=== PATIENT | female | born 1970 | race African-American/Black ===

== ENCOUNTER 2016-05-13 12:18 | Emergency (ER) | payer SELFPAY ==
[2016-05-13] MEDS ORDERED: traMADol HCl 50 MG TAB ONE (13:01)
[2016-05-13] MEDS ORDERED: Naproxen 500 MG TAB ONE (13:02)
[2016-05-13] MEDS ORDERED: Amoxicillin/Potassium Clav 500 MG TAB ONE (13:02)
== END 2016-05-13 13:14 | disposition home or self-care (01) ==
LOC: MADERS 12:18
DX: J02.9 Acute pharyngitis, unspecified (principal); I25.10 Atherosclerotic heart disease of native coronary artery without angina pectoris; E78.5 Hyperlipidemia, unspecified; E11.9 Type 2 diabetes mellitus without complications; I11.0 Hypertensive heart disease with heart failure; I50.9 Heart failure, unspecified; E78.00 Pure hypercholesterolemia, unspecified; I42.9 Cardiomyopathy, unspecified; F32.9 Major depressive disorder, single episode, unspecified; F41.9 Anxiety disorder, unspecified; Z79.82 Long term (current) use of aspirin; Z79.4 Long term (current) use of insulin; Z79.899 Other long term (current) drug therapy
CPT/HCPCS: 99282

== ENCOUNTER 2016-10-08 19:02 | Emergency (ER) | payer SELFPAY ==
[~2016-10-08 19:02] MED LIST: Sodium Chloride 0.9% 1,000 ML BAG ONE; Sodium Chloride 0.9% 500 ML BAG ONE
[2016-10-08] MEDS ORDERED: Insulin Regular 300 UNITS/3 ML VIAL ONE (20:07)
[2016-10-08 20:08] LABS: INR-International Normal Ratio 0.9; PTT 29.4 SEC (22.9-36.1); Prothrombin Time 12.7 SEC (12.0-14.7)
[2016-10-08 20:20] LABS: Alkaline Phosphatase 96 U/L (40-150); BUN (Urea Nitrogen) 12 mg/dL (7.0-18.7); Bilirubin, Total Less than 0.3 mg/dL (0.2-1.2); CKMB 0.6 ng/mL (0-6.6); Calc. Creatinine Clearance 0 mL/min (70-130); Calcium 9.7 mg/dL (7.8-10.44); Carbon Dioxide 10 mmol/L (22-29); Chloride 90 mmol/L (98-107); Estimated GFR-MDRD 63; Sodium 127 mmol/L (136-145); Troponin I 0.021 ng/mL (< 0.028)
[2016-10-08 20:23] LABS: Potassium 4.5 mmol/L (3.5-5.1)
[2016-10-08 20:24] LABS: Globulin 6.3 g/dL (2.4-3.5); Glucose 571 mg/dL (70-105); Protein, Total 10.3 g/dL (6.0-8.3)
[2016-10-08 20:43] LABS: ALT (SGPT) 30 U/L (8-55); AST (SGOT) 30 U/L (5-34)
[2016-10-08 20:52] LABS: Clarity Clear (Clear)
[2016-10-08 20:53] LABS: Bilirubin Negative (Negative); Blood, Urine Negative (Negative); Glucose, Urine (Dipstick) >=1000 mg/dL (Negative); Leukocyte Negative (Negative); Nitrite Negative (Negative); Protein, Urine (Dipstick) Negative (Neg-Trace); Specific Gravity, Urine 1.028 (1.002-1.036); Urobilinogen 0.2 mg/dL (0.2-1.0)
[2016-10-08 20:59] LABS: Band 1 % (5-11); Hemoglobin 12.5 g/dL (12.0-16.0); Lymphocytes 45 % (21-51); MDiff Complete? YES; Mean Corpuscular HGB CONC 36.1 g/dL (32.0-36.0); Mean Corpuscular Hemoglobin 28.2 pg (27.0-31.0); Mean Corpuscular Volume 78.3 fl (81.0-99.0); Mean Platelet Volume 7.1 fL (7.4-10.4); Monocytes 2 % (0-10); Neutrophil 44 % (42-75); PLT Morphology Comment Appears Adequate; Platelet Count 256 thou/uL (130-400); RBC Distribution Width 12.8 % (11.5-14.5); RBC Morphology Normal; Reactive Lymphocytes 8 % (0-10); Red Blood Cell (RBC) Count 4.43 mill/uL (4.20-5.40); White Blood Cell (WBC) Count 6.5 thou/uL (4.8-10.8)
[2016-10-08 21:00] LABS: THC/Cannabinoid Screen Not Detected (NotDetected)
[2016-10-08 21:01] LABS: Amphetamine Not Detected (NotDetected); Barbiturates Screen Not Detected (NotDetected); Benzodiazepine Screen Not Detected (NotDetected); Cocaine Metabolite Screen Not Detected (NotDetected); Medtox Control Line Valid? VALID (VALID); Methadone Not Detected (NotDetected); Methamphetamine Not Detected (NotDetected); Opiate Screen Not Detected (NotDetected); Oxycodone Screen Not Detected (NotDetected); Phencyclidine (PCP) Not Detected (NotDetected); Tricyclic Screen Not Detected (NotDetected)
--- NOTE | 2016-10-08 21:12 | RAD ---
AP VIEW CHEST: 10/08/16 HISTORY: Syncope. AP view chest is obtained on 10/08/16. Comparison made to previous exam from 02/29/16. AP view chest demonstrates a dual lead intracardiac defibrillator. Mild cardiomegaly is seen. The khadar ngs are well aerated. No evidence of active intrathoracic disease seen. No evidence of effusions, pn eumonia or pneumothorax seen. IMPRESSION: Cardiomegaly. POS: [facility]
== END 2016-10-08 23:20 | disposition short-term general hospital (02) ==
LOC: MADERS 19:02
DX: E11.65 Type 2 diabetes mellitus with hyperglycemia (principal); E86.0 Dehydration; I25.10 Atherosclerotic heart disease of native coronary artery without angina pectoris; E78.5 Hyperlipidemia, unspecified; I11.0 Hypertensive heart disease with heart failure; I50.9 Heart failure, unspecified; I42.9 Cardiomyopathy, unspecified; F41.9 Anxiety disorder, unspecified; F32.9 Major depressive disorder, single episode, unspecified; Z95.0 Presence of cardiac pacemaker; Z79.4 Long term (current) use of insulin; Z79.82 Long term (current) use of aspirin; Z79.899 Other long term (current) drug therapy
CPT/HCPCS: 36416; 71010; 80053; 80306; 81003; 82553; 83605; 83880; 84443; 84484; 85025; 85610; 85730; 87040; 93005; 94760; 96361; 96374; 96376; J1815; J7050

== ENCOUNTER 2017-07-07 11:38 | Outpatient (CLI) | payer OTHER ==
[2017-07-07 12:20] LABS: Anion Gap 20 mmol/L (10-20); BUN (Urea Nitrogen) 26 mg/dL (7.0-18.7); Calc. Creatinine Clearance 0 mL/min (70-130); Calcium 10.5 mg/dL (7.8-10.44); Carbon Dioxide 26 mmol/L (22-29); Chloride 98 mmol/L (98-107); Estimated GFR-MDRD 57; Glucose 312 mg/dL (70-105); Potassium 4.7 mmol/L (3.5-5.1); Sodium 139 mmol/L (136-145)
== END 2017-07-07 11:39 | disposition home or self-care (01) ==
LOC: MADLABBHPM 11:38
PROVIDERS: ATTEND Internal Medicine Cardiovascular Disease
DX: I50.22 Chronic systolic (congestive) heart failure (principal)
CPT/HCPCS: 36415; 80048

== ENCOUNTER 2017-10-03 08:42 | Outpatient (CLI) | payer OTHER ==
[2017-10-03 09:23] LABS: ALT (SGPT) 22 U/L (8-55); AST (SGOT) 28 U/L (5-34); Albumin 4.4 g/dL (3.5-5.0); Alkaline Phosphatase 78 U/L (40-150); Anion Gap 21 mmol/L (10-20); BUN (Urea Nitrogen) 18 mg/dL (7.0-18.7); Bilirubin, Total 0.7 mg/dL (0.2-1.2); Calc. Creatinine Clearance 0 mL/min (70-130); Calcium 9.8 mg/dL (7.8-10.44); Carbon Dioxide 25 mmol/L (22-29); Chloride 98 mmol/L (98-107); Estimated GFR-MDRD 67; Globulin 3.9 g/dL (2.4-3.5); Glucose 288 mg/dL (70-105); Potassium 5.6 mmol/L (3.5-5.1); Protein, Total 8.3 g/dL (6.0-8.3); Sodium 138 mmol/L (136-145)
== END 2017-10-03 08:43 | disposition home or self-care (01) ==
LOC: MADLAB 08:42
PROVIDERS: ATTEND Internal Medicine Cardiovascular Disease
DX: I50.20 Unspecified systolic (congestive) heart failure (principal)
CPT/HCPCS: 36415; 80053

== ENCOUNTER 2017-10-06 10:53 | Outpatient (CLI) | payer OTHER ==
[2017-10-06 11:36] LABS: Anion Gap 20 mmol/L (10-20); BUN (Urea Nitrogen) 27 mg/dL (7.0-18.7); Calc. Creatinine Clearance 0 mL/min (70-130); Calcium 9.8 mg/dL (7.8-10.44); Carbon Dioxide 25 mmol/L (22-29); Chloride 98 mmol/L (98-107); Estimated GFR-MDRD 49; Glucose 257 mg/dL (70-105); Potassium 4.1 mmol/L (3.5-5.1); Sodium 139 mmol/L (136-145)
== END 2017-10-06 10:54 | disposition home or self-care (01) ==
LOC: MADLAB 10:53
PROVIDERS: ATTEND Internal Medicine Cardiovascular Disease
DX: E87.5 Hyperkalemia (principal)
CPT/HCPCS: 36415; 80048

== ENCOUNTER 2017-12-09 16:43 | Emergency (ER) | payer SELFPAY | END 2017-12-09 17:33 | disposition home or self-care (01) | LOC: MADERS 16:43 | DX: K04.7 Periapical abscess without sinus (principal); I11.0 Hypertensive heart disease with heart failure; I50.9 Heart failure, unspecified; E11.9 Type 2 diabetes mellitus without complications; E78.5 Hyperlipidemia, unspecified; F32.9 Major depressive disorder, single episode, unspecified; F41.9 Anxiety disorder, unspecified; I42.9 Cardiomyopathy, unspecified; I25.10 Atherosclerotic heart disease of native coronary artery without angina pectoris | CPT/HCPCS: 99282 ==

== ENCOUNTER 2018-05-11 11:54 | Outpatient (CLI) | payer MEDICARE ==
[2018-05-11 12:12] LABS: #Eosinphils 0.1 thou/uL (0.0-0.7); #Lymphocytes 1.8 thou/uL (1.20-3.40); #Monocytes 0.3 thou/uL (0.11-0.59); #Neutrophils 3.8 thou/uL (1.40-6.50); %Basophils 0.6 % (0.0-1.0); %Eosinophils 0.9 % (0.0-10.0); %Lymphocytes 30.4 % (21.0-51.0); %Monocytes 5.1 % (0.0-10.0); Mean Corpuscular HGB CONC 32.6 g/dL (32.0-36.0); Mean Corpuscular Hemoglobin 26.6 pg (27.0-31.0); Mean Corpuscular Volume 81.6 fL (78.0-98.0); Mean Platelet Volume 8.5 fL (7.4-10.4); Platelet Count 188 thou/uL (130-400); RBC Distribution Width 11.7 % (11.5-14.5); Red Blood Cell (RBC) Count 4.87 mill/uL (4.20-5.40)
[2018-05-11 12:19] LABS: PTT 27.5 SEC (22.9-36.1); Prothrombin Time 12.9 SEC (12.0-14.7)
[2018-05-11 12:30] LABS: ALT (SGPT) 20 U/L (8-55); AST (SGOT) 14 U/L (5-34); Albumin 4.7 g/dL (3.5-5.0); Alkaline Phosphatase 106 U/L (40-150); Anion Gap 19 mmol/L (10-20); BUN (Urea Nitrogen) 21 mg/dL (7.0-18.7); Bilirubin, Total 0.5 mg/dL (0.2-1.2); Calc. Creatinine Clearance 0 mL/min (70-130); Calcium 10.5 mg/dL (7.8-10.44); Carbon Dioxide 28 mmol/L (22-29); Chloride 97 mmol/L (98-107); Estimated GFR-MDRD 66; Globulin 3.8 g/dL (2.4-3.5); Glucose 282 mg/dL (70-105); Protein, Total 8.5 g/dL (6.0-8.3); Sodium 140 mmol/L (136-145)
--- NOTE | 2018-05-11 14:30 | RAD ---
PA AND LATERAL VIEWS CHEST: Date: 05/11/18 HISTORY: Preoperative evaluation. FINDINGS: Comparison made with exam of 06/06/17. The heart size is normal. There is a left-sided AICD. The lungs are expanded without focal areas of c onsolidation, pneumothoraces, zen[place] pulmonary edema, or pleural effusions. No acute osseous abnormali ties are seen. IMPRESSION: No radiographic evidence of acute cardiopulmonary process. POS: [facility]
== END 2018-05-11 11:55 | disposition home or self-care (01) ==
LOC: MADLABBHPM 11:54
PROVIDERS: ATTEND Family Medicine
DX: Z01.818 Encounter for other preprocedural examination (principal)
CPT/HCPCS: 36415; 71046; 80053; 85025; 85610; 85730

== ENCOUNTER 2018-10-06 03:43 | Emergency (ER) | payer MEDICARE ==
[2018-10-06 04:29] LABS: Bilirubin Negative (Negative); Blood, Urine Negative (Negative); Clarity Clear (Clear); Glucose, Urine (Dipstick) >=1000 mg/dL (Negative); Leukocyte Negative (Negative); Nitrite Negative (Negative); Protein, Urine (Dipstick) Negative (Neg-Trace); Urobilinogen 0.2 mg/dL (Less than 2)
--- NOTE | 2018-10-06 08:04 | CT ---
CT OF ABDOMEN AND PELVIS NONCONTRAST: IMPRESSION: 02/18/2016. CLINICAL HISTORY: Abdominal pain with dysuria, constipation. FINDINGS: There is no evidence of urolithiasis or hydroureteral nephrosis. There is prominent distention of th e urinary bladder. Moderate volume of retained fecal material is present throughout the colon. Prio r cholecystectomy noted. The solid abdominal organs are limited in evaluation without the presence o f IV contrast. Visualized lung bases reveal no evidence of consolidation. There is trace pleural fl uid bilaterally. Mild vascular calcification is present. No free air. Scattered areas of subcutane ous increased density of the ventral abdominal wall may relate to sequelae from injections. There is no free pelvic fluid. Moderate distention of the rectum is present due to retained fecal material. IMPRESSION: 1. Large volume of retained urine within the urinary bladder. Recommend clinical correlation in thi s regard. 2. Extensive retained fecal material of the colon. This does include a moderate degree of distentio n of the rectum with associated mural prominence. Recommend clinical correlation to exclude evidence of stercoral colitis. 3. Evaluation otherwise limited on the basis of noncontrast technique. POS: [facility]
[2018-10-06 09:09] LABS: #Monocytes 0.3 thou/uL (0.11-0.59); #Neutrophils 8.6 thou/uL (1.40-6.50); %Basophils 0.2 % (0.0-1.0); %Eosinophils 0.2 % (0.0-10.0); %Lymphocytes 9.8 % (21.0-51.0); %Monocytes 3.3 % (0.0-10.0); %Neutrophils 86.7 % (42.0-75.0); Hemoglobin 11.3 g/dL (12.0-16.0); Mean Corpuscular HGB CONC 32.3 g/dL (32.0-36.0); Mean Corpuscular Hemoglobin 25.8 pg (27.0-31.0); Mean Corpuscular Volume 79.8 fL (78.0-98.0); Mean Platelet Volume 7.1 fL (7.4-10.4); Platelet Count 165 thou/uL (130-400); RBC Distribution Width 11.9 % (11.5-14.5); Red Blood Cell (RBC) Count 4.38 mill/uL (4.20-5.40); White Blood Cell (WBC) Count 9.9 thou/uL (4.8-10.8)
[2018-10-06 09:33] LABS: ALT (SGPT) 21 U/L (8-55); AST (SGOT) 14 U/L (5-34); Albumin 4.2 g/dL (3.5-5.0); Alkaline Phosphatase 99 U/L (40-150); Anion Gap 19 mmol/L (10-20); BUN (Urea Nitrogen) 13 mg/dL (7.0-18.7); Bilirubin, Total 0.5 mg/dL (0.2-1.2); Calc. Creatinine Clearance 0 mL/min (70-130); Calcium 9.8 mg/dL (7.8-10.44); Carbon Dioxide 26 mmol/L (22-29); Chloride 98 mmol/L (98-107); Estimated GFR-MDRD 64; Globulin 3.3 g/dL (2.4-3.5); Glucose 414 mg/dL (70-105); Lipase 19 U/L (8-78); Potassium 3.9 mmol/L (3.5-5.1); Protein, Total 7.5 g/dL (6.0-8.3); Sodium 139 mmol/L (136-145)
== END 2018-10-06 09:47 | disposition home or self-care (01) ==
LOC: MADERS 03:43
DX: K59.00 Constipation, unspecified (principal); R33.9 Retention of urine, unspecified; I11.0 Hypertensive heart disease with heart failure; I50.9 Heart failure, unspecified; I25.10 Atherosclerotic heart disease of native coronary artery without angina pectoris; E11.9 Type 2 diabetes mellitus without complications; E78.5 Hyperlipidemia, unspecified; F41.9 Anxiety disorder, unspecified; F32.9 Major depressive disorder, single episode, unspecified; Z79.82 Long term (current) use of aspirin; Z79.899 Other long term (current) drug therapy; Z79.4 Long term (current) use of insulin
CPT/HCPCS: 74176; 80053; 81003; 83690; 84443; 84484; 85025; A4353

== ENCOUNTER 2021-07-25 06:24 | Outpatient (CLI) | payer MEDICARE ==
[2021-07-25 07:20] LABS: ALT (SGPT) 27 U/L (8-55); AST (SGOT) 22 U/L (5-34); Albumin 4.4 g/dL (3.5-5.0); Alkaline Phosphatase 93 U/L (40-110); Anion Gap 17 mmol/L (10-20); BUN (Urea Nitrogen) 19 mg/dL (7.0-18.7); Bilirubin, Total 0.5 mg/dL (0.2-1.2); Calc. Creatinine Clearance 0 mL/min (70-130); Calcium 9.7 mg/dL (7.8-10.44); Carbon Dioxide 27 mmol/L (22-29); Cardiac Risk 5.1 (Less than 4.5); Chloride 103 mmol/L (98-107); Cholesterol 164 mg/dl (< 200 Desired); Globulin 3.7 g/dL (2.4-3.5); Glucose 194 mg/dL (70-105); HDL Cholesterol 32 mg/dL (>60 Neg Risk); Potassium 4.3 mmol/L (3.5-5.1); Protein, Total 8.1 g/dL (6.0-8.3); Sodium 143 mmol/L (136-145); Triglycerides 570 mg/dL (Less than 150)
[2021-07-25 11:13] LABS: Hemoglobin A1c 6.9 % (4.0-6.0)
[2021-07-25 11:48] LABS: Creatinine, Urine 136.56 mg/dL (47-110); Microalbumin Urine 6.2 mg/dL (0.5-50.0); Microalbumin/Creat Ratio 45.4 mg/g (Less than 30)
== END 2021-07-25 06:25 | disposition home or self-care (01) ==
LOC: MADLAB 06:24
PROVIDERS: ATTEND Internal Medicine Endocrinology, Diabetes & Metabolism
DX: E11.65 Type 2 diabetes mellitus with hyperglycemia (principal)
CPT/HCPCS: 36415; 80053; 80061; 82043; 83036

== ENCOUNTER 2021-09-24 16:50 | Emergency (ER) | payer MEDICARE ==
[2021-09-24 17:19] LABS: #Basophils 0.1 thou/uL (0.0-0.2); #Eosinphils 0.1 thou/uL (0.0-0.7); #Lymphocytes 2.1 thou/uL (1.20-3.40); #Monocytes 0.3 thou/uL (0.11-0.59); #Neutrophils 2.9 thou/uL (1.40-6.50); %Basophils 1.2 % (0.0-1.0); %Eosinophils 1.4 % (0.0-10.0); %Lymphocytes 38.5 % (21.0-51.0); %Monocytes 5.5 % (0.0-10.0); %Neutrophils 53.4 % (42.0-75.0); Hemoglobin 11.6 g/dL (12.0-16.0); Mean Corpuscular HGB CONC 33.5 g/dL (32.0-36.0); Mean Corpuscular Hemoglobin 26.3 pg (27.0-31.0); Mean Corpuscular Volume 78.6 fL (78.0-98.0); Mean Platelet Volume 8.5 fL (7.4-10.4); Platelet Count 173 thou/uL (130-400); RBC Distribution Width 12.9 % (11.5-14.5); Red Blood Cell (RBC) Count 4.41 mill/uL (4.20-5.40); White Blood Cell (WBC) Count 5.5 thou/uL (4.8-10.8)
[2021-09-24] MEDS ORDERED: Nitroglycerin 2% Ointment 1 INCH/1 GM Packet ONE ×2 (17:25→17:32)
[2021-09-24] MEDS ORDERED: Aspirin Chewable 81 MG TAB ONE (17:25)
[2021-09-24 17:34] LABS: ALT (SGPT) 27 U/L (8-55); AST (SGOT) 18 U/L (5-34); Albumin 4.4 g/dL (3.5-5.0); Alkaline Phosphatase 85 U/L (40-110); Anion Gap 18 mmol/L (10-20); BUN (Urea Nitrogen) 18 mg/dL (7.0-18.7); Bilirubin, Total 0.5 mg/dL (0.2-1.2); Calc. Creatinine Clearance 0 mL/min (70-130); Calcium 9.4 mg/dL (7.8-10.44); Carbon Dioxide 24 mmol/L (22-29); Chloride 106 mmol/L (98-107); Estimated GFR 54; Globulin 3.3 g/dL (2.4-3.5); Glucose 133 mg/dL (70-105); Lipase 26 U/L (8-78); Potassium 3.5 mmol/L (3.5-5.1); Protein, Total 7.7 g/dL (6.0-8.3); Sodium 144 mmol/L (136-145)
[2021-09-24 21:09] LABS: Troponin I Less than 0.010 ng/mL (< 0.028)
[2021-09-24] MEDS ORDERED: Acetaminophen 325 MG TAB ONE (21:10)
== END 2021-09-24 21:12 | disposition short-term general hospital (02) ==
LOC: MADERS 16:50
DX: R07.89 Other chest pain (principal); I11.0 Hypertensive heart disease with heart failure; I50.9 Heart failure, unspecified; E11.9 Type 2 diabetes mellitus without complications; E78.5 Hyperlipidemia, unspecified; I25.10 Atherosclerotic heart disease of native coronary artery without angina pectoris; I42.9 Cardiomyopathy, unspecified; Z79.82 Long term (current) use of aspirin; Z79.4 Long term (current) use of insulin; Z79.899 Other long term (current) drug therapy
CPT/HCPCS: 71045; 80053; 83690; 84484; 85025; 93005

== ENCOUNTER 2021-11-08 07:44 | Outpatient (CLI) | payer MEDICARE, OTHER ==
[2021-11-08 08:19] LABS: Bilirubin Negative (Negative); Blood, Urine Negative (Negative); Clarity Clear (Clear); Glucose, Urine (Dipstick) >=1000 mg/dL (Negative); Ketone, Urine Negative (Negative); Leukocyte Negative (Negative); Nitrite Negative (Negative); Protein, Urine (Dipstick) Negative (Neg-Trace); Urobilinogen 0.2 mg/dL (Less than 2)
[2021-11-08 08:38] LABS: Bacteria/HPF Rare-Few HPF (None Seen); RBC/HPF 0-3 HPF (0-3); Squamous Epithelial 0-3 HPF (0-3); WBC/HPF 0-3 HPF (0-3)
== END 2021-11-08 07:45 | disposition home or self-care (01) ==
LOC: MADLABBHPM 07:44 → MADLAB 07:45
PROVIDERS: ATTEND Family Medicine
DX: R82.90 Unspecified abnormal findings in urine (principal)
CPT/HCPCS: 81001; 87086

== ENCOUNTER 2025-01-06 19:26 | Emergency (ER) | payer OTHER ==
[2025-01-06] MEDS ORDERED: diphenhydrAMINE 25 MG CAP ONE (19:51)
[2025-01-06] MEDS ORDERED: diphenhydrAMINE 25 MG CAP PO SCH (20:00)
== END 2025-01-06 20:59 | disposition home or self-care (01) ==
LOC: MADERS 19:26
DX: T63.441A Toxic effect of venom of bees, accidental (unintentional), initial encounter (principal); I25.10 Atherosclerotic heart disease of native coronary artery without angina pectoris; E11.9 Type 2 diabetes mellitus without complications; I11.0 Hypertensive heart disease with heart failure; I50.9 Heart failure, unspecified
CPT/HCPCS: 99282

== ENCOUNTER 2025-01-31 07:55 | Outpatient (CLI) | payer OTHER ==
[2025-01-31 08:37] LABS: ALT (SGPT) 14 U/L (Less than 34); AST (SGOT) 13 U/L (11-34); Albumin 4.4 g/dL (3.1-4.5); Alkaline Phosphatase 51 U/L (40-110); Anion Gap 18 mmol/L (10-20); BUN (Urea Nitrogen) 23 mg/dL (9.8-20.1); Bilirubin, Total 0.6 mg/dL (0.3-1.2); Calc. Creatinine Clearance 0 mL/min (70-130); Calcium 9.6 mg/dL (7.8-10.44); Carbon Dioxide 27 mmol/L (22-29); Cardiac Risk 3.9 (Less than 4.5); Chloride 100 mmol/L (98-107); Cholesterol 132 mg/dl (< 200 Desired); Globulin 3.6 g/dL (2.4-3.5); Glucose 188 mg/dL (70-105); HDL Cholesterol 34 mg/dL (>60 Neg Risk); LDL Cholesterol, Calculated 74 mg/dL; Potassium 3.6 mmol/L (3.5-5.1); Sodium 141 mmol/L (136-145); Triglycerides 118 mg/dL (Less than 150)
== END 2025-01-31 07:56 | disposition home or self-care (01) ==
LOC: MADLAB 07:55
PROVIDERS: ATTEND Internal Medicine Endocrinology, Diabetes & Metabolism
DX: E11.65 Type 2 diabetes mellitus with hyperglycemia (principal); E55.9 Vitamin D deficiency, unspecified
CPT/HCPCS: 36415; 80053; 80061; 82043; 82306; 83036